=== PATIENT | female | born 2005 | race African-American/Black ===

== ENCOUNTER 2025-04-25 10:41 | Emergency (ER) | payer OTHER, SELFPAY ==
--- NOTE | ~2025-04-25 | XR_ITS ---
EXAMINATION: XR CHEST CLINICAL INFORMATION: sob COMPARISON: None available. TECHNIQUE: Frontal view of the chest was obtained. FINDINGS: The cardiac, hilar, and mediastinal contours are normal. The lungs are clear bilaterally. No pneumothorax or effusion. No focal osseous or soft tissue abnormality. XR/XR chest 1V IMPRESSION: Normal chest. Electronically signed by: Johny Trujillo MD 04/25/2025 11:14 AM EDT RP
--- NOTE | 2025-04-25 10:41 | ECG_ITS ---
Test Reason : chest pain Blood Pressure : */* mmHG Vent. Rate : 96 BPM Atrial Rate : 96 BPM P-R Int : 136 ms QRS Dur : 78 ms QT Int : 332 ms P-R-T Axes : 75 91 -11 degrees QTcB Int : 419 ms Sinus rhythm with Premature atrial complexes Rightward axis T wave abnormality, consider inferior ischemia Abnormal ECG No previous ECGs available Referred By: Generic ED Physician Electronically Signed By: JOSE HOFF MD
[2025-04-25 10:48] VITALS: BP 141/99; PULSE 93; RESP 16; TEMP 36.7; O2SAT 99; BMI 16.8
[2025-04-25 11:06] LABS: MANUAL DIFF FLAG NO
[2025-04-25 11:10] LABS: Basophils Absolute Auto 0.1 X10*3/uL (0.0-0.2); Basophils Percent Auto 0.9 % (0-2); Eosinophils Absolute Auto 0.1 X10*3/uL (0.0-0.4); Hematocrit 41.8 % (37.0-47.0); Hemoglobin 14.1 g/dl (12.0-16.0); Imm Gran Abs Auto 0.02 X10*3/uL (0.00-0.03); Imm Gran Pct Auto 0.2 % (0.0-0.4); Lymphocytes Percent Auto 33.1 % (20-40); Mean Corpuscular HGB Conc 33.7 g/dl (31.0-35.0); Mean Corpuscular Hemoglobin 31.2 pg (27.0-33.0); Mean Corpuscular Volume 92.5 fL (80.0-98.0); Monocytes Absolute Auto 0.6 X10*3/uL (0.1-1.2); Monocytes Percent Auto 6.6 % (2-11); Neutrophils Absolute Auto 5.2 x10*3/uL (2.0-8.3); Neutrophils Percent Auto 58.2 % (45-73); Platelet Count 257 X10*3/uL (160-400); Red Blood Count 4.52 X10*6/uL (4.20-5.50); Red Cell Distribution Width 13.3 % (11.0-16.0)
[2025-04-25 11:26] LABS: Anion Gap 13 (12-20); Blood Urea Nitrogen 10 mg/dL (9-16); Carbon Dioxide 25 mmol/L (22-29); Chloride 108 mmol/L (96-108); Creatinine Clr Calc Pharmacy 83.9; Estimated Glomerular Filt Rate > 60; Glucose Random 79 mg/dL (60-115); Potassium 4.5 mmol/L (3.3-5.1); Sodium 141 mmol/L (135-145)
[2025-04-25 11:32] LABS: Troponin-I High Sensitivity < 2.7 ng/L (<3.5-17.0)
[2025-04-25 11:43] VITALS: BP 127/83; PULSE 78; RESP 18; TEMP 37; O2SAT 100
--- NOTE | 2025-04-25 11:43 | PC.NURSE ---
Pt admitted to room and placed onfull monitor- NSR no ectopy. VSS states she has had CP on and off for a few months preciptated by activity like climbing stairs or carrying her child. Pt also states are you going to look at my hip? Denies injury but states it has hurt since Tuesday with pain 08/07. No injury visible. Pt states she carries the baby on that side (1 yr old). CP no N/V but states Left arm hurts at same time as CP.
[2025-04-25 12:06] LABS: Alanine Aminotransferase 13 U/L (0-31); Albumin Level 4.7 g/dL (3.5-5.0); Alkaline Phosphatase 57 U/L (39-117); Aspartate Amino Transferase 25 U/L (5-31); Bilirubin Direct 0.2 mg/dL (0.0-0.5); Bilirubin Total 0.7 mg/dL (0.0-1.0); HCG Quantitative < 2 mIU/mL; Lipase 12 U/L (8-78); Total Protein 7.6 g/dL (6.5-8.0)
--- OUTSIDE RECORDS SUMMARY | 2025-04-25 12:08 | XMS_ITS | Clinical Summary ---
Author Organization [facility] it Address [address] [place] [address] Care Team Providers Care Employment Clerk Name Role Phone Osbaldo Conti MD Primary Care Provider Surgical History Surgery Date Site/Laterality Comments OTHER SURGICAL HISTORY PROCEDURE: HISTORICAL D&C; COMMENT: TAB x 2 01/2021,03/2022 Medical History Medical History Date Comments History of chlamydia 01/2021 DX:History of chlamydia Family History Medical History Relation Name Comments Crohn's disease Brother 1 Asthma Brother 2 No Known Problems Daughter Ca'greg Asthma Father bad bronchitis No Known Problems Maternal Grandfather No known health hx Diabetes Maternal Grandmother Type 2 IDDM Depression Mother Regenia Heart attack Mother Regenia x 2 Hypertension Mother Regenia Other: heart disease Mother [place] Stroke Paternal Grandfather No Known Problems Paternal Grandmother No Known Problems Sister 1 No Known Problems Sister 2 Breast cancer Neg Hx Cervical cancer Neg Hx Colon cancer Neg Hx Ovarian cancer Neg Hx Pancreatic cancer Neg Hx Prostate cancer Neg Hx Uterine cancer Neg Hx Relation Name Status Comments Brother 1 half brother sh are mom Brother 2 Alive half brother sh are mom Daughter Ca'greg Alive Father Alive Maternal Grandfather Maternal Grandmother Alive Mother [place] Alive Paternal Grandfather Alive Paternal Grandmother Alive Sister 1 Alive half sister sha re mom Sister 2 Alive half sister sha re mom Social History Tobacco Use Types Packs/Day Years Used Date Smoking Tobacco: Never Smokeless Tobacco: Never Alcohol Use Standard Drinks/Week Comments Not Currently 0 (1 standard drink = 0.6 oz pur e alcohol) Comments Unknown Sex and Gender Information Value Date Recorded Sex Assigned at Not on file Legal Sex Female 9:37 AM EST Gender Identity Not on file Sexual Orientation Not on file Obstetrics History Last Filed Vital Signs Vital Sign Reading Time Taken Comments Blood Pressure 128/78 03/15/2024 3:46 PM EDT Pulse 90 03/15/2024 3:46 PM EDT Temperature - - Respiratory Rate - - Oxygen Saturation - - Inhaled Oxygen Concentration - - Weight 66.2 kg (146 lb) 03/15/2024 3:46 PM EDT Height 172.7 cm (5' 8 ) 09/30/2023 3:02 PM EDT Body Mass Index 22.2 09/30/2023 3:02 PM EDT Plan of Treatment Health Maintenance Due Date Last Done Comments Gonorrhea/Chlamydia Screening 2003 HPV Vaccines (1 - 3-dose series) 2018 Meningococcal B Vaccine (1 o f 2 - Standard) 2019 Hepatitis B Vaccines (1 of 3 - 19+ 3-dose series) 2022 Pneumococcal Vaccine: Pediat rics (0 to 5 Years) and At-Risk Patients (6 to 64 Years) (1 of 2 - PCV) 2022 Annual Well Child Visit (3-2 1 years old) 10/31/2022 Depression Screening 10/31/2022 Hepatitis C Screening 10/31/2022 Social Influencers of Health Screening 10/31/2022 COVID-19 Vaccine (1 - 2023-2 5 season) 2024 Cervical Cancer Screening: P ap Smear 2024 Influenza Vaccine (Season Ended) 2025 DTaP,Tdap,and Td Vaccines (2 - Td or Tdap) 11/19/2031 11/19/2021 HIV Screening Completed 05/24/2024 HIB Vaccines Aged Out No longer eligi ble based on patient's age to complete this topic Hepatitis A Vaccines Aged Out No long er eligible based on patient's age to complete this topic IPV Vaccines Aged Out No longer eligi ble based on patient's age to complete this topic MMR Vaccines Aged Out No longer eligi ble based on patient's age to complete this topic Meningococcal ACWY Vaccine Aged Out N o longer eligible based on patient's age to complete this topic RSV Immunization Patients Un juan luis 20 months Aged Out No longer eligible b ased on patient's age to complete this topic Varicella Vaccines Aged Out No longer eligible based on patient's age to complete this topic Care Teams Employment Clerk Relationship Specialty Start Date End Date Osbaldo Conti MD [address] PCP - General Pediatrics 08/20/22
--- NOTE | 2025-04-25 12:22 | ED.CHESTPAIN ---
HPI - Chest Pain General Chief Complaint: Chest Pain Stated Complaint: chest pain Time Seen by Provider: 04/25/25 11:35 History of Present Illness HPI narrative: Patient is a 19-year-old female been having some chest pain worse on the left side. Worse with movement certain direction worsened with deep breath patient denies any history of blood clot. Patient's mother had an OK in her 20s. She denies any fever chills. Denies any diaphoresis. The pain is made worse with ambulation. Patient from home. Not on control. No leg swelling. Does have some pain in the left hip area it has been ongoing. There is no bowel urinary incontinence. There is no focal weakness. Patient is from home. No trauma. No rash. Related Data Allergies Allergy/AdvReac Type Severity Reaction Status Date / Time No Known Allergies Allergy Verified 04/25/25 10:57 Review of Systems Review of Systems: Positive chest pain Yes all other systems are reviewed and are negative PMFSH Past Medical History Attestation statement: The following information was validated with the patient. Social History Social History Smoked in Last 30 Days: No Use of substances other than those prescribed or required for medical reasons: Yes Substance Use Type: Marijuana Substance Use Frequency: Occasionally Advance Directives: No Advance Directives Information Provided: Yes Patient : No Physical Exam Vital Signs: Vital Signs: Last Vital Signs Temp 97.6 F 04/25/25 13:10 Pulse 65 04/25/25 13:10 Resp 13 04/25/25 13:10 BP 127/83 04/25/25 13:10 Pulse Ox 100 04/25/25 13:10 O2 Del Method Room Air 04/25/25 13:10 BMI result Body Mass Index 16.8 Appearance: Alert. Oriented X3. No acute distress. Eyes: Pupils equal, round and reactive to light. ENT: Pharynx normal. Neck: Normal inspection. Neck supple. No lymph nodes noted. No crepitus CVS: Normal heart rate and rhythm. Pulses normal. Normal S1 and S2 Respiratory: No respiratory distress. Breath sounds normal. No Wheezing. No rales Abdomen: Soft and nontender. No rigidity. No distention. good BS x4 Skin: Skin warm and dry. Normal skin color. Normal skin turgor. Extremities: No lower extremity edema. Neurovascular intact to all extremities. No Lacerations. No Rash Neuro: Oriented X 3. No motor deficit. No sensory deficit. Moving all extermities. No slurred speech Medical Decision Making Medical Decision Making [facility] Narrative: Well-appearing no acute distress 19 years old only risk factor being family history of ACS. Mom had an OK at the age of 25. Patient pain atypical for ACS. My interpretation patient's x-ray was grossly negative for pneumonia no pneumothorax. Patient EKG my interpretation shows a sinus rhythm heart rate is approximately 80 with significant atrial arrhythmia. No acute ST segment elevation. DC QRS QTC normal patient has 2 sets of cardiac enzymes negative. History not consistent with ACS. The only risk factor being mom having ACS at the age of 25. Patient heart score is less than 3. Her D-dimer is negative in the setting of low risk unlikely to have PE. Chest x-ray showed no pneumonia no pneumothorax. Will discharge home. No rash to suggest shingles Differential Diagnosis Differential Diagnoses: The differential diagnosis associated with the presentation includes Musculoskeletal chest pain, PE, ACS, pneumothorax Admission/Observation Consideration of admission/observation: Escalation of care including admission/observation considered Lab Data [facility] Lab Attestation statement: I reviewed the patient's lab results. 04/25/25 11:03 04/25/25 11:03 Labs: Lab Results 04/25/25 04/25/25 Range/Units 11:03 13:09 WBC 9.0 (4.8-10.8) X10*3/uL RBC 4.52 (4.20-5.50) X10*6/uL Hgb 14.1 (12.0-16.0) g/dl Hct 41.8 (37.0-47.0) % MCV 92.5 (80.0-98.0) fL MCH 31.2 (27.0-33.0) pg MCHC 33.7 (31.0-35.0) g/dl RDW 13.3 (11.0-16.0) % Plt Count 257 (160-400) X10*3/uL MPV 10.0 (9.4-12.3) fL Immature Gran % (Auto) 0.2 (0.0-0.4) % Neut % (Auto) 58.2 (45-73) % Lymph % (Auto) 33.1 (20-40) % [place] % (Auto) 6.6 (2-11) % Eos % (Auto) 1.0 (0-4) % Baso % (Auto) 0.9 (0-2) % Lymph # (Auto) 3.0 (1.2-4.9) X10*3/uL [place] # (Auto) 0.6 (0.1-1.2) X10*3/uL Eos # (Auto) 0.1 (0.0-0.4) X10*3/uL Baso # (Auto) 0.1 (0.0-0.2) X10*3/uL Abs Immat Gran (auto) 0.02 (0.00-0.03) X10*3/uL Absolute Neuts (auto) 5.2 (2.0-8.3) x10*3/uL Absolute Nucleated RBC 0.000 (0.0-0.012) X10*3/uL Nucleated RBC % (auto) 0.0 (0.0-0.2) /100WBC D-Dimer High Sensitivty < 150 NG/ML Sodium 141 (135-145) mmol/L Potassium 4.5 (3.3-5.1) mmol/L Chloride 108 (96-108) mmol/L Carbon Dioxide 25 (22-29) mmol/L Anion Gap 13 (12-20) BUN 10 (9-16) mg/dL Creatinine 0.84 (0.5-1.4) mg/dL Estim Creat Clear Calc 83.9 Estimated GFR > 60 Random Glucose 79 (60-115) mg/dL Calcium 10.0 (8.4-10.2) mg/dL Total Bilirubin 0.7 (0.0-1.0) mg/dL Direct Bilirubin 0.2 (0.0-0.5) mg/dL AST 25 (5-31) U/L ALT 13 (0-31) U/L Alkaline Phosphatase 57 (39-117) U/L Troponin I High Sens < 2.7 < 2.7 (<3.5-17.0) ng/L Total Protein 7.6 (6.5-8.0) g/dL Albumin 4.7 (3.5-5.0) g/dL Lipase 12 (8-78) U/L Beta HCG, Quant < 2 mIU/mL Independent Interpretation I performed an independent interpretation of an: EKG (Please see above) and Plain X-Ray (Chest x-ray negative for pneumonia pneumothorax) Radiology Impression Discussion of test interpretation with radiology: I have reviewed the radiologist's reading. External Record Review External record reviewed: Prior outpatient labs Chronic Conditions Family history of ACS Social Determinants Patient?s care significantly limited by Social Determinants of Health including: Problems related to primary support group Discharge Plan Discharge Clinical Impression: Chest pain Patient Disposition: Home, Self-Care Instructions: Chest Pain (DC) Referrals: Physician,None [Primary Care Provider] - 04/29/25 Print Language: Lao
[2025-04-25 13:10] VITALS: BP 127/83; PULSE 65; RESP 13; TEMP 36.4; O2SAT 100
[2025-04-25 13:23] LABS: D Dimer High Sensitivity < 150 NG/ML
[2025-04-25 13:36] LABS: Troponin-I High Sensitivity < 2.7 ng/L (<3.5-17.0)
[2025-04-25 14:46] VITALS: BP 127/83; PULSE 65; RESP 13; TEMP 36.4; O2SAT 100
== END 2025-04-25 14:40 | disposition home or self-care (01) ==
PROVIDERS: Physician Assistant Medical; Emergency Provider Emergency Medicine Emergency Medical Services
DX: R07.89 Other chest pain (principal); R10.2 Pelvic and perineal pain; M25.552 Pain in left hip; Z79.899 Other long term (current) drug therapy
CPT/HCPCS: 36415; 71045; 80048; 80076; 83690; 84484; 84702; 85025; 85379; 93005; 99283; 99285

== ENCOUNTER → 2025-04-25 10:41 | Outpatient (BNV) | payer OTHER, SELFPAY | PROVIDERS: Emergency Provider Emergency Medicine Emergency Medical Services; Visit Provider Internal Medicine Cardiovascular Disease | DX: I49.1 Atrial premature depolarization (principal) | CPT/HCPCS: 93010 ==

== ENCOUNTER → 2025-04-25 10:58 | Outpatient (BNV) | payer OTHER, SELFPAY | PROVIDERS: Emergency Provider Emergency Medicine Emergency Medical Services; Visit Provider Radiology Diagnostic Radiology | DX: R06.02 Shortness of breath (principal) | CPT/HCPCS: 71045 ==